=== PATIENT | female | born 1940 | race Caucasian/White ===

== ENCOUNTER → 2017-03-07 | Outpatient (CLI) | payer MEDICARE, OTHER ==
--- NOTE | 2017-03-09 13:48 | MAM ---
EXAM DESCRIPTION: 3D Screening BILATERAL : Digital Mammography. CLINICAL HISTORY: 76 years Female SCREENING . No complaints. Remote family history of breast cancer. Hysterectomy. Has taken HRT 5 or more years ago. COMPARISON: Baseline study at this facility. No prior reports available. TECHNIQUE: Bilateral CC and MLO projection full-field images, 3-D tomosynthesis digital mammographic technique. Also bilateral synthesized CC/ MLO full-field images. CAD not utilized. FINDINGS: The breast parenchymal density pattern is: Scattered areas of fibroglandular density. No skin thickening or nipple retraction bilateral solitary microcalcifications. Bilateral vascular calcifications. Posterior intramammary lymph node right breast. Left axillary lymph nodes. No focal, stellate mass or density, focal asymmetry , and no suspicious microcalcifications bilaterally. IMPRESSION: BI-RADS CATEGORY: 2 - BENIGN FINDINGS. FOLLOW UP: Routine digital bilateral screening, one year interval from March 2017. Written communication explaining the IMPRESSION and follow-up, will be mailed to the patient and referring health care provider. According to the [employer], yearly mammograms are recommended starting at age 40 and continuing as long as a woman is in good health. Any breast change noted on a breast self-exam should be reported promptly to the patient's healthcare provider. Breast MRI is recommended for women with an approximately 20-25% or greater lifetime risk of breast cancer, including women with a strong family history of breast or ovarian cancer and women who have been treated for Hodgkin's disease. A negative mammographic report should not delay tissue diagnosis in patients with significant clinical history or physical findings. Extremely dense breast tissue limits the sensitivity of digital mammography. Electronically signed by: Marbin Gonzales MD 03/09/2017 1:47 PM [facility]
== END ==
LOC: MAMMO 14:15
PROVIDERS: ATTEND Obstetrics & Gynecology
DX: Z12.31 Encounter for screening mammogram for malignant neoplasm of breast (principal)
CPT/HCPCS: 77063; G0202

== ENCOUNTER → 2017-04-25 | Outpatient (CLI) | payer MEDICARE, OTHER ==
--- NOTE | 2017-04-25 15:28 | MRI ---
MRI left wrist without contrast INDICATION: Left wrist pain fall 6 weeks ago TECHNIQUE: Noncontrast MR imaging left wrist FINDINGS: There is moderate basal joint osteoarthrosis of the thumb. There is no evidence of fracture. Prominent distal radioulnar joint fluid. No disruption of the intrinsic ligaments. Neutral ulnar length. Prominent fluid and cystic changes along the deep margin of the flexor compartment with multifocal ganglion formation. No flexor tendon rupture noted. Median nerve signal is normal. There is mild edema and cystic change along the dorsal capsule of the wrist indicating capsular sprain/impingement and multifocal small ganglia. There is a possible disruption of the flexor digitorum tendon to the small finger correlate with flexion limitation in the small finger. 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
== END | disposition home or self-care (01) ==
LOC: MRI 09:00
PROVIDERS: ATTEND Physician Assistant Medical
DX: M19.042 Primary osteoarthritis, left hand (principal)

== ENCOUNTER 2017-08-08 05:39 | Day surgery (SDC) | payer MEDICARE, OTHER ==
[2017-08-08] MEDS ORDERED: PROPARACAINE 0.5% OPHTH SOL 15 ML BTTL ONE (06:12)
[2017-08-08] MEDS ORDERED: TROP 1%/CYCLOPEN 1%/PHENYL 2% DROPS ONE (06:12)
[2017-08-08] MEDS ORDERED: TOBRAMYCIN SULF 0.3 % OPHT SOL 1 DROP LEFT_EYE ONE ×2 (11:54→12:23)
[2017-08-08] MEDS ORDERED: MIDAZOLAM INJ 2 MG/2 ML VIAL ONE ×2 (12:01→12:08)
[2017-08-08] MEDS ORDERED: PROPARACAINE 0.5% OPHTH SOL 15 ML BTTL LEFT_EYE ONE (12:08)
[2017-08-08] MEDS ORDERED: LIDOCAINE 1% PF 2 ML AMP INJ ONE (12:22)
[2017-08-08] MEDS ORDERED: DEXAMETHASONE 0.1% OPHTH SOL 1 DROP LEFT_EYE ONE (12:22)
[2017-08-08] MEDS ORDERED: BRIMONIDINE 0.2% OPHTH DROPS LEFT_EYE ONE (12:23)
[2017-08-08 15:55] VITALS: BP 106/83; TEMP 97.3; O2SAT 98
== END 2017-08-08 13:08 | disposition home or self-care (01) ==
LOC: AMB 05:39
PROVIDERS: ATTEND Ophthalmology
DX: H25.12 Age-related nuclear cataract, left eye (principal); I10 Essential (primary) hypertension; I25.2 Old myocardial infarction; K21.9 Gastro-esophageal reflux disease without esophagitis; E66.9 Obesity, unspecified; Z79.82 Long term (current) use of aspirin; Z79.899 Other long term (current) drug therapy
CPT/HCPCS: 00142; 66984; J2250

== ENCOUNTER 2017-08-18 06:03 | Day surgery (SDC) | payer MEDICARE, OTHER ==
[2017-08-18] MEDS ORDERED: PROPARACAINE 0.5% OPHTH SOL 15 ML BTTL ONE (10:29)
[2017-08-18] MEDS ORDERED: TROP 1%/CYCLOPEN 1%/PHENYL 2% DROPS ONE (10:29)
[2017-08-18] MEDS ORDERED: MIDAZOLAM INJ 2 MG/2 ML VIAL ONE ×2 (12:22→16:14)
[2017-08-18] MEDS ORDERED: LIDOCAINE 1% PF 2 ML AMP INJ ONE (16:16)
[2017-08-18] MEDS ORDERED: DEXAMETHASONE 0.1% OPHTH SOL 1 DROP RIGHT_EYE ONE ×2 (16:24→16:34)
[2017-08-18] MEDS ORDERED: TOBRAMYCIN SULF 0.3 % OPHT SOL 1 DROP RIGHT_EYE ONE ×2 (16:24→16:34)
[2017-08-18] MEDS ORDERED: BRIMONIDINE 0.2% OPHTH DROPS RIGHT_EYE ONE ×2 (16:25→16:34)
[2017-08-18 16:59] VITALS: BP 160/103; TEMP 97.6; O2SAT 96
== END 2017-08-18 16:55 | disposition home health service, planned readmission (86) ==
LOC: AMB 06:03
PROVIDERS: ATTEND Ophthalmology
DX: H25.11 Age-related nuclear cataract, right eye (principal); I10 Essential (primary) hypertension; E11.36 Type 2 diabetes mellitus with diabetic cataract; K21.9 Gastro-esophageal reflux disease without esophagitis; E66.9 Obesity, unspecified; Z79.82 Long term (current) use of aspirin; Z79.899 Other long term (current) drug therapy
CPT/HCPCS: 00142; 66984; J2250

== ENCOUNTER → 2018-04-11 | Outpatient (CLI) | payer MEDICARE, OTHER | LOC: GMAE 10:23 | PROVIDERS: ATTEND Family Medicine | DX: E03.9 Hypothyroidism, unspecified (principal) ==

== ENCOUNTER → 2018-05-16 | Outpatient (CLI) | payer MEDICARE, OTHER ==
--- NOTE | 2018-05-17 16:53 | MAM ---
EXAM DESCRIPTION: 3D Screening BILATERAL : Digital Mammography. CLINICAL HISTORY: 77 years Female SCREENING . No complaints. No personal history of breast cancer. Mother with breast cancer. Hysterectomy 40 years ago. Childbirth. Hormone replacement 5 or more years ago.. Lifetime risk of developing breast cancer (Tyrer-Cuzick model)(%): 3.3. COMPARISON: Bilateral screening digital breast tomosynthesis 03/07/2017. TECHNIQUE: Bilateral CC and MLO projection full-field images, digital tomosynthesis mammographic technique. Bilateral digital 2-D full-field MLO images. CAD not available for tomosynthesis or 2-D images. FINDINGS: The breast parenchymal density pattern is: Scattered areas of fibroglandular density. No skin thickening or nipple retraction. Bilateral solitary microcalcifications. Left axillary lymph nodes. Bilateral vascular calcifications. No new focal, stellate mass or density, focal asymmetry , and no suspicious microcalcifications bilaterally. Stable mammograms compared to prior study. IMPRESSION: Benign exam. BIRAD CATEGORY: 2 BENIGN FINDINGS. RECOMMENDATIONS: FOLLOW UP: Routine digital bilateral mammographic screening, one year interval from May 2018. Written communication explaining the IMPRESSION and follow-up, will be mailed to the patient and referring health care provider. According to the [employer], yearly mammograms are recommended starting at age 40 and continuing as long as a woman is in good health. Any breast change noted on a breast self-exam should be reported promptly to the patient's healthcare provider. Breast MRI is recommended for women with an approximately 20-25% or greater lifetime risk of breast cancer, including women with a strong family history of breast or ovarian cancer and women who have been treated for Hodgkin's disease. A negative mammographic report should not delay tissue diagnosis in patients with significant clinical history or physical findings. Extremely dense breast tissue limits the sensitivity of digital mammography. Electronically signed by: Marbin Gonzales MD 05/17/2018 4:50 PM [facility]
== END ==
LOC: MAMMO 10:00
PROVIDERS: ATTEND Obstetrics & Gynecology
DX: Z12.31 Encounter for screening mammogram for malignant neoplasm of breast (principal)

== ENCOUNTER → 2018-09-21 | Outpatient (CLI) | payer MEDICARE, OTHER ==
--- NOTE | 2018-09-23 12:53 | CT ---
EXAM DESCRIPTION: CTA Head without and with contrast CLINICAL HISTORY: 78 years, Female, HEADACHE COMPARISON: None TECHNIQUE: Precontrast imaging of the brain was performed. Rapid bolus administration of routine adult dose of nonionic iodinated IV contrast was performed with thin-section axial scanning of the brain performed in a dynamic fashion. Reconstructed multiplanar and three dimensional MIP images created on a separate dedicated workstation are reviewed along with the source axial images and stored in the patient's medical record. FINDINGS: Precontrast imaging of the brain shows normal marrufo-white matter differentiation. Normal ventricles and sulci for age. No intracranial hemorrhage, mass, or shift of the midline. No sulcal effacement. Normal size of the ventricles. Bone window images show intact skull base and calvarium. Normal aeration of tympanic cavities and mastoid air cells and paranasal sinuses. Coronal and sagittal reformatted precontrast images confirm the findings. CT angiography intracranial After bolus IV contrast administration, axial source data images show positive enhancement of vertebral and basilar arteries. There is an enhancing mass in the right posterior fossa compressing the lateral aspect of the right lateral ventricle. This most likely represents a meningioma and measures 1.7 x 1.1 x 1.9 cm. Bone window images show no definite adjacent osseous changes. The lesion is extra-axial with prominent CSF space anterior and posterior to the lesion. Epidural metastasis can mimic the appearance of the meningioma. Clinical correlation recommended. Normal enhancement of the basilar artery, superior cerebellar arteries and posterior cerebral arteries bilaterally. Prominent anterior inferior cerebellar arteries. There is normal enhancement of intracranial internal carotid arteries with positive enhancement of the anterior cerebral and middle cerebral arteries. Mild arteriosclerotic irregularity of the anterior cerebral arteries is seen. Positive enhancement of peripheral branch vessels within the anterior cerebral, middle cerebral and posterior cerebral circulation distributions. Coronal images show positive enhancement of the supra clinoid ICAs with widely patent middle cerebral arteries bilaterally. Minimal irregular narrowing of anterior cerebral arteries without flow-limiting stenosis. No aneurysm or major vessel occlusion. IMPRESSION: Enhancing mass in the right lateral posterior fossa indenting the lateral aspect of the right cerebellar hemisphere consistent with meningioma 1.9 cm. See above. Intracranial CT angiography is negative for aneurysm, major vessel occlusion or flow-limiting stenosis. This exam was performed according to our departmental dose-optimization program, which includes automated exposure control, adjustment of the mA and/or kV according to patient size and/or use of iterative reconstruction technique. Electronically signed by: Bird Nuñez MD 09/23/2018 12:51 PM CDT
--- NOTE | 2018-09-23 12:59 | CT ---
EXAM DESCRIPTION: CTA Neck with contrast CLINICAL HISTORY: 78 years, Female, HEADACHE COMPARISON: None TECHNIQUE: Rapid bolus administration of routine adult dose of nonionic iodinated IV contrast IV contrast was performed with thin-section axial scanning of the neck performed in a dynamic fashion. Reconstructed multiplanar and three dimensional MIP images created on a separate dedicated workstation are reviewed along with the source axial images and stored in the patient's medical record. FINDINGS: Three-D shaded surface display images show widely patent carotid bifurcation on the right. The carotid bifurcation is normal on the left but the mid left cervical internal carotid artery appears narrowed approximately 40%. No plaque or stenosis in this area is seen on the source data images and therefore this is thought to be artifactual. Positive enhancement of the aortic arch. Normal enhancement of left subclavian, left common carotid and right innominate arteries with positive enhancement of bilateral common carotid arteries and bilateral vertebral arteries. Right vertebral artery is slightly larger than the left. There is positive enhancement of right subclavian artery. The carotid bifurcations are widely patent bilaterally. The right internal carotid artery is widely patent from the level of the bifurcation to the skull base. The left ICA is tortuous but without stenosis. The cause of the abnormal appearance on the 3-D shaded surface display images may be related to artifacts. Prominent streak artifacts from dental amalgam. Coronal and sagittal reformatted images also show previous cervical spinal fusion C4-C6. IMPRESSION: Normal cervical CT angiography. This exam was performed according to our departmental dose-optimization program, which includes automated exposure control, adjustment of the mA and/or kV according to patient size and/or use of iterative reconstruction technique. Electronically signed by: Bird Nuñez MD 09/23/2018 12:57 PM CDT
== END ==
LOC: RAD 14:34
PROVIDERS: ATTEND Family Medicine
DX: G93.89 Other specified disorders of brain (principal)

== ENCOUNTER → 2018-10-14 | Outpatient (CLI) | payer MEDICARE, OTHER | LOC: GMAE 10:52 | PROVIDERS: ATTEND Family Medicine | DX: R19.7 Diarrhea, unspecified (principal) ==

== ENCOUNTER 2019-11-01 04:22 | Emergency (ER) | payer MEDICARE, OTHER ==
[2019-11-01] MEDS: SODIUM CHLORIDE 0.9% (FLUSH) 10 ML SYG IV PRN (04:52)
--- NOTE | 2019-11-01 04:55 | ED.PDOC ---
History of Present Illness - General Stated Complaint: my heart is racing Time Seen by Provider: 11/01/19 04:43 - History of Present Illness Initial Comments: 79 F +pmh presents with family to ED c/o acute onset of palpitations. Pt informs palpitations started in her sleep and woke her up. H/o similar sx's that occur at night and quickly resolve on their own; however tonight they have not improved. Pt is scheduled with [facility] in the next few weeks for Echo. + h/o similar sx's. Denies alleviating/aggravating factors. Denies associated CP, SOB, cough, dizziness/lightheadedness, headache, n/v/d, f/c. Pt is otherwise healthy with no other signs, symptoms, or complaints. Allergies/Adverse Reactions: Allergies Doxycycline Allergy (Verified 08/08/17 12:32) Home Medications: Ambulatory Orders Aspirin [Baby Aspirin] 81 mg PO QD 10/30/13 Cholecalciferol [Vitamin D] 400 unit PO DAILY 10/30/13 Cyanocobalamin Inj [Vitamin B-12 Inj] 1,000 mcg IM ONCE 10/30/13 Ferrous Gluconate [Fergon] 65 mg PO DAILY 10/30/13 Levothyroxine Sodium [Synthroid] 0.1 mg PO DAILY@69910/30/13 Losartan Potassium 100 mg PO BID 10/30/13 Multiple Minerals W/ Vitamins [Citracal Plus] 1 tab PO DAILY 10/30/13 Torsemide 20 mg PO DAILY@69910/30/13 Amlodipine Besylate 5 mg PO BEDTIME 08/08/17 Magnesium [Magnesium 400 mg] 1 tab PO BEDTIME 08/08/17 Omeprazole Magnesium [Prilosec] 10 mg PO DAILY@69908/08/17 Simvastatin [Zocor] 10 mg PO BEDTIME 08/08/17 Colestipol HCl 1 gm PO BID 11/01/19 Gabapentin [Neurontin] 1 capsule PO BID 11/01/19 Review of Systems - Review of Systems Constitutional: Denies: chills, fever EENTM: Denies: blurred vision, throat pain Respiratory: Denies: cough, short of breath Cardiology: States: edema - bilateral and symmetric, unchanged from baseline, palpitations. Denies: chest pain Gastrointestinal/Abdominal: Denies: abdominal pain, diarrhea, nausea, vomiting Genitourinary: Denies: dysuria, frequency Musculoskeletal: Denies: joint pain, muscle pain Skin: Denies: change in color, rash Neurological: States: other - denies dizziness. Denies: headache, numbness Hematologic/Lymphatic: Denies: blood clots Past Medical History (General) - Patient Medical History Hx Congestive Heart Failure: No Hx Hypertension: Yes Hx Thyroid Disease: Yes Hx Diabetes: No Hx Gastroesophageal Reflux: Yes Hx MRSA: No - Vaccination History Hx Tetanus, Diphtheria Vaccination: Yes Hx Pneumococcal Vaccination: Yes Immunizations Up to Date: Yes - Social History Hx Tobacco Use: No Hx Alcohol Use: No Hx Substance Use: No Hx Substance Use Treatment: No Hx Depression: No - Female History Patient is a Female of Child Bearing Age (10 -59 yrs old): No Patient : No Family Medical History - Family History Mother Family History: No Known Living Status: Physical Exam - Physical Exam General Appearance: Alert, No apparent distress, Other - Non-toxic Eyes, Ears, Nose, Throat Exam: PERRL/EOMI, normal ENT inspection Neck: full range of motion, supple Respiratory: chest non-tender, lungs clear, normal breath sounds, no respiratory distress, no accessory muscle use Cardiovascular/Chest: normal peripheral pulses, no edema, no gallop, no JVD, no murmur, tachycardia, irregularly irregular Gastrointestinal/Abdominal: normal bowel sounds, non tender, soft Extremity: normal inspection, no pedal edema Neurologic: alert, normal mood/affect, oriented x 3 Skin Exam: normal color, warm/dry, other - no rash. no jaundice Progress - Progress Progress: Presents for palpitations with new onset afib with rvr. I will perform labs, EKG, imaging, provide appropriate pharmacotherapy, and continue to monitor/reassess. Dispo will depend on EKG, lab results, imaging results, and overall course in ED; however, admission is expected. 05:21 Rechecked pt with family at bedside. Pt improved briefly with second round of Cardizem and IVF; however, with any movement she develops RVR again. She will require Cardizem drip and admission. Pt agrees with transfer for admission and prefers [facility]. Denies [facility] in [place]. [id number] Score: 4. I will give lovenox here in ED. 05:38 I have consulted with ED physician at [facility] and discussed pt's case in ED along with current findings. She accepts pt for transfer and agrees with plan. Pt stable throughout ED course with improvement in vitals and HR. NAD throughout. Amadou Neil DO Emergency Medicine Physician [id number] - Results/Orders Results/Orders: EKG @0435: read @0445. Afib with RVR @ 135, nl axis, QTc 504, MI and QRS wnl, no ST elevations/depressions, nonspecific ST/T-wave changes. No STEMI. Compared with 04/10/2015 EKG: new afib; otherwise, no changes concerning for acute ischemia. Repeat EKG @0602: read @0608. Bradycardia-tachycardia syndrome with 1st degree AV block, nl axis, MI 210, QRS and QTc wnl, no TEJAS elevations/depressions, nonspecific ST/T-wave changes. No STEMI. New change compared to prior AFib with RVR. Laboratory Tests 11/01/19 04:40 WBC 7.1 RBC 4.94 Hgb 15.2 Hct 43.7 MCV 88.4 MCH 30.7 MCHC 34.7 RDW 12.5 Plt Count 225 MPV 7.4 Absolute Neuts (auto) 4.30 Absolute Lymphs (auto) 1.60 Absolute Monos (auto) 0.90 H Absolute Eos (auto) 0.30 Absolute Basos (auto) 0.10 Neutrophils % 60.5 Lymphocytes % 22.3 Monocytes % 12.4 H Eosinophils % 4.0 Basophils % 0.8 PT 9.4 INR < 1.00 PTT (SP) 24.9 Sodium 137 Potassium 3.5 L Chloride 101 Carbon Dioxide 26 Anion Gap 13.5 BUN 12 Creatinine 0.57 L BUN/Creatinine Ratio 21.1 H Random Glucose 103 Serum Osmolality 273.8 L Calcium 9.7 Magnesium 2.3 Creatine Kinase 103 CK-MB (CK-2) 2.5 CK-MB (CK-2) % Not Reportable Troponin I < 0.02 EXAM: XR Chest, 1 View CLINICAL HISTORY: The patient is 79 years old and is Female; chest pain TECHNIQUE: Single view of the chest. COMPARISON: April 10, 2015. FINDINGS: Lungs: Unremarkable. No consolidation. Pleural space: Unremarkable. No pneumothorax. Heart: Unremarkable. No cardiomegaly. Mediastinum: Unremarkable. Bones/joints: Cervical spine hardware. No osteophytes. No acute rib fracture. Upper abdomen: No free air in the visualized upper abdomen. IMPRESSION: No acute cardiopulmonary process identified. Electronically signed by: Kayla Graf MD 11/01/2019 5:07 AM CDT Vital Signs - 24 hr 11/01/19 11/01/19 11/01/19 04:40 04:42 04:55 Temperature 97.6 F Pulse Rate Pulse Rate [ 127 H 127 H 138 H monitor] Respiratory 20 20 Rate Blood Pressure 155/88 129/110 [Left Arm] O2 Sat by Pulse 96 Oximetry 11/01/19 11/01/19 11/01/19 05:05 05:09 05:25 Temperature Pulse Rate 84 102 H 65 Pulse Rate [ 108 H 90 monitor] Respiratory 20 20 Rate Blood Pressure 107/69 142/83 [Left Arm] O2 Sat by Pulse 95 97 Oximetry 11/01/19 11/01/19 05:49 06:12 Temperature 97.6 F 97.8 F Pulse Rate 65 66 Pulse Rate [ 120 H 67 monitor] Respiratory 20 20 Rate Blood Pressure 149/99 164/87 [Left Arm] O2 Sat by Pulse 95 98 Oximetry Departure - Departure Clinical Impression: Atrial fibrillation with RVR, Sick sinus syndrome Time of Disposition: 05:24 Disposition: Transfer to Hospital Condition: Fair Referrals: STONE SELBY MD [Primary Care Provider] - 1-2 Weeks Home Medications: Ambulatory Orders Aspirin [Baby Aspirin] 81 mg PO QD 10/30/13 Cholecalciferol [Vitamin D] 400 unit PO DAILY 10/30/13 Cyanocobalamin Inj [Vitamin B-12 Inj] 1,000 mcg IM ONCE 10/30/13 Ferrous Gluconate [Fergon] 65 mg PO DAILY 10/30/13 Levothyroxine Sodium [Synthroid] 0.1 mg PO DAILY@69910/30/13 Losartan Potassium 100 mg PO BID 10/30/13 Multiple Minerals W/ Vitamins [Citracal Plus] 1 tab PO DAILY 10/30/13 Torsemide 20 mg PO DAILY@69910/30/13 Amlodipine Besylate 5 mg PO BEDTIME 08/08/17 Magnesium [Magnesium 400 mg] 1 tab PO BEDTIME 08/08/17 Omeprazole Magnesium [Prilosec] 10 mg PO DAILY@0700 08/08/17 Simvastatin [Zocor] 10 mg PO BEDTIME 08/08/17 Colestipol HCl 1 gm PO BID 11/01/19 Gabapentin [Neurontin] 1 capsule PO BID 11/01/19 Critical Care Note - Critical Care Note Total Time (mins): 33 Comments: New Onset Afib Multiple bolus doses of Cardizem required followed by Cardizem drip Labs, imaging, EKG, ordered and reviewed. I have stabilized pt and created treatment plan. Transfer to Outside Facility - Transfer Information Decision to Transfer Date: 11/01/19 Decision to Transfer Time: 05:24 Reason for Transfer: required specialist not available Accepting Facility: [facility]
--- NOTE | 2019-11-01 05:09 | RAD ---
EXAM: XR Chest, 1 View CLINICAL HISTORY: The patient is 79 years old and is Female; chest pain TECHNIQUE: Single view of the chest. COMPARISON: April 10, 2015. FINDINGS: Lungs: Unremarkable. No consolidation. Pleural space: Unremarkable. No pneumothorax. Heart: Unremarkable. No cardiomegaly. Mediastinum: Unremarkable. Bones/joints: Cervical spine hardware. No osteophytes. No acute rib fracture. Upper abdomen: No free air in the visualized upper abdomen. IMPRESSION: No acute cardiopulmonary process identified. Electronically signed by: Kayla Graf MD 11/01/2019 5:07 AM CDT
[2019-11-01] MEDS: SODIUM CHLORIDE 0.9% 1000ML 500 ML IVS ONE (05:10)
[2019-11-01] MEDS: diltiaZEM DRIP 125 MG in SODIUM CHLORIDE 0.9% 100ML 100 ML IVPB SCH (05:42)
[2019-11-01] MEDS ORDERED: ENOXAPARIN SODIUM 80 MG/0.8 ML SYG SUBCU ONE (06:05)
[2019-11-01 06:13] VITALS: TEMP 97.8; O2SAT 98
[2019-11-01 06:28] VITALS: BP 141/70
== END 2019-11-01 06:32 | disposition short-term general hospital (02) ==
LOC: ER 04:22
DX: I48.91 Unspecified atrial fibrillation (principal); I49.5 Sick sinus syndrome; I10 Essential (primary) hypertension; Z79.82 Long term (current) use of aspirin; Z79.899 Other long term (current) drug therapy
CPT/HCPCS: 36415; 71045; 80048; 82550; 82553; 84484; 85025; 85610; 85730; 93005; J1650; J7030; J7050

== ENCOUNTER 2020-02-20 14:07 | Emergency (ER) | payer MEDICARE, OTHER ==
[2020-02-20] MEDS ORDERED: DEXAMETHASONE INJ 4 MG/ML VIAL IV ONE (14:42)
[2020-02-20] MEDS ORDERED: ONDANSETRON INJ 4 MG/2 ML VIAL IV ONE (14:42)
--- NOTE | 2020-02-20 14:53 | ED.PDOC ---
History of Present Illness - General Chief Complaint: General Stated Complaint: bodyaches and headache Time Seen by Provider: 02/20/20 14:14 Source: patient, RN notes reviewed, Vital Signs reviewed, old records Exam Limitations: no limitations - History of Present Illness Initial Comments: 79 yo pleasant F was diagnosed with COVID 5 days ago presents with worsening body aches and headache. States she had a fever 100.6. Today had nausea and emesis. no abdominal pain, dysuria, diarrhea. no chest pain or shortness of breath. Has not taken anything at home for headache. Hx of meningioma, gets MRI q6 months. On blood thinners for a-fib, no recent head trauma. Allergies/Adverse Reactions: Allergies Doxycycline Allergy (Verified 02/20/20 14:46) Home Medications: Ambulatory Orders Aspirin [Baby Aspirin] 81 mg PO QD 10/30/13 Cholecalciferol [Vitamin D] 400 unit PO DAILY 10/30/13 Cyanocobalamin Inj [Vitamin B-12 Inj] 1,000 mcg IM ONCE 10/30/13 Ferrous Gluconate [Fergon] 65 mg PO DAILY 10/30/13 Levothyroxine Sodium [Synthroid] 0.1 mg PO DAILY@69910/30/13 Losartan Potassium 100 mg PO BID 10/30/13 Multiple Minerals W/ Vitamins [Citracal Plus] 1 tab PO DAILY 10/30/13 Torsemide 20 mg PO DAILY@69910/30/13 Amlodipine Besylate 5 mg PO BEDTIME 08/08/17 Magnesium [Magnesium 400 mg] 1 tab PO BEDTIME 08/08/17 Omeprazole Magnesium [Prilosec] 10 mg PO DAILY@69908/08/17 Simvastatin [Zocor] 10 mg PO BEDTIME 08/08/17 Colestipol HCl 1 gm PO BID 11/01/19 Gabapentin [Neurontin] 1 capsule PO BID 11/01/19 Dexamethasone [Decadron] 4 mg PO DAILY #4 tab 02/20/20 Ondansetron HCl [Zofran] 4 mg PO TID PRN #15 tab 02/20/20 Review of Systems - Review of Systems Constitutional: States: chills, fever, malaise EENTM: Denies: blurred vision, nose congestion, throat pain Respiratory: Denies: cough, short of breath, stridor Cardiology: Denies: chest pain, palpitations, syncope Gastrointestinal/Abdominal: States: abdominal pain, nausea. Denies: diarrhea, vomiting Genitourinary: Denies: frequency, hematuria Musculoskeletal: States: muscle pain. Denies: back pain Skin: Denies: rash Neurological: States: headache. Denies: numbness, paresthesia, weakness Endocrine: Denies: unexplained weight gain, unexplained weight loss Hematologic/Lymphatic: Denies: easy bleeding, easy bruising Past Medical History (General) - Patient Medical History Hx Seizures: No Hx Dementia: No Hx Asthma: No Hx of COPD: No Hx Congestive Heart Failure: No Hx Hypertension: Yes Hx Thyroid Disease: Yes Hx Diabetes: No Hx Gastroesophageal Reflux: Yes Hx Cancer: No Hx Hepatitis C: No Hx MRSA: No Hx Other - free text: meningioma Surgical History: cholecystectomy, Hysterectomy - Vaccination History Hx Tetanus, Diphtheria Vaccination: Yes Hx Influenza Vaccination: Yes Hx Pneumococcal Vaccination: Yes - Social History Hx Tobacco Use: No Hx Alcohol Use: No Hx Substance Use: No Hx Substance Use Treatment: No Hx Depression: No - Female History Patient is a Female of Child Bearing Age (10 -59 yrs old): No Patient : No Family Medical History - Family History Mother Family History: No Known Living Status: Physical Exam - Physical Exam General Appearance: Alert, Comfortable, No apparent distress, Well Developed, Well Groomed, Well Hydrated, Well Nourished Eye Exam: bilateral normal Ears, Nose, Throat: hearing grossly normal, normal ENT inspection Neck: non-tender, full range of motion, supple, normal inspection Respiratory: chest non-tender, lungs clear, normal breath sounds, no respiratory distress, no accessory muscle use Cardiovascular/Chest: normal peripheral pulses, regular rate, rhythm, no edema, no gallop, no JVD, no murmur Peripheral Pulses: radial,right: 2+, radial,left: 2+ Gastrointestinal/Abdominal: normal bowel sounds, non tender, soft, no organomegaly, no pulsatile mass Rectal Exam: deferred Back Exam: normal inspection, no CVA tenderness, no vertebral tenderness Extremity: normal range of motion, non-tender, normal inspection, no pedal edema, no calf tenderness, normal capillary refill Neurologic: hospitalist medical director II-XII nml as tested, no motor/sensory deficits, alert, normal mood/affect, oriented x 3 Skin Exam: normal color, warm/dry Progress - Progress Progress: 02/20/20 21:05 Pain improved with medication and IVF. VSS, saturating well on RA. no meningeal signs. The data reviewed when caring for this patient included: nurse notes, prior records, etc. The history and assessments from nurses notes were reviewed and considered, and the patient's home medication list was also reviewed and co nsidered. My assessment and the results of testing completed here in the ED were discussed with the patient/family. All questions were answered, and they express understanding of my assessment and the plan. They have been instructed to return if their symptoms worsen, and have been asked to follow up with their primary care physician to recheck today's presenting complaint. Strict return precautions given. I have reviewed medication, benefits, alternatives and side effects. Patient decided to proceed with medication. Donna Bacon DO #[id number] - EKG/XRAY/CT XRAY: chest - no acute cardiopulmonary pathology CT: head: stable meningioma, no ICH. Departure - Departure Clinical Impression: COVID-19 Headache Qualifiers: Headache type: unspecified Headache chronicity pattern: acute headache Intractability: not intractable Qualified Code(s): R51.9 - Headache, unspecified Time of Disposition: 15:49 Disposition: Discharge to Home or Self Care Condition: Fair Departure Forms: ED Discharge - Pt. Copy, Patient Portal Self Enrollment Instructions: Headache, Adult, Muscle and Bone Pain (DC), Viral Syndrome (DC) Diet: resume usual diet Activity: increase activity as tolerated Referrals: STONE SELBY MD [Primary Care Provider] - 1 Week Prescriptions: Dexamethasone [Decadron] 4 mg PO DAILY #4 tab Ondansetron HCl [Zofran] 4 mg PO TID PRN #15 tab PRN Reason: Vomiting Home Medications: Ambulatory Orders Aspirin [Baby Aspirin] 81 mg PO QD 10/30/13 Cholecalciferol [Vitamin D] 400 unit PO DAILY 10/30/13 Cyanocobalamin Inj [Vitamin B-12 Inj] 1,000 mcg IM ONCE 10/30/13 Ferrous Gluconate [Fergon] 65 mg PO DAILY 10/30/13 Levothyroxine Sodium [Synthroid] 0.1 mg PO DAILY@0700 10/30/13 Losartan Potassium 100 mg PO BID 10/30/13 Multiple Minerals W/ Vitamins [Citracal Plus] 1 tab PO DAILY 10/30/13 Torsemide 20 mg PO DAILY@69910/30/13 Amlodipine Besylate 5 mg PO BEDTIME 08/08/17 Magnesium [Magnesium 400 mg] 1 tab PO BEDTIME 08/08/17 Omeprazole Magnesium [Prilosec] 10 mg PO DAILY@69908/08/17 Simvastatin [Zocor] 10 mg PO BEDTIME 08/08/17 Colestipol HCl 1 gm PO BID 11/01/19 Gabapentin [Neurontin] 1 capsule PO BID 11/01/19 Dexamethasone [Decadron] 4 mg PO DAILY #4 tab 02/20/20 Ondansetron HCl [Zofran] 4 mg PO TID PRN #15 tab 02/20/20
[2020-02-20] MEDS ORDERED: SODIUM CHLORIDE 0.9% 1000ML 1,000 ML IVS ONE (15:40)
--- NOTE | 2020-02-20 15:47 | CT ---
EXAM DESCRIPTION: Head CLINICAL HISTORY: headache, hx menigioma COMPARISON: September 21, 2018 TECHNIQUE: Non contrast cranial CT FINDINGS: Ventricles and sulci are unremarkable. Stable posterior fossa meningioma along the posterolateral margin of the petrous temporal bone maximum measurement 2 cm. No acute or subacute ischemia. There are no white matter abnormalities detected. The calvarium is unremarkable. The visualized paranasal sinuses and the mastoids are clear. IMPRESSION: 1. Stable right side posterior fossa meningioma This exam was performed according to our departmental dose-optimization program, which includes automated exposure control, adjustment of the mA and/or kV according to patient size and/or use of iterative reconstruction technique. Electronically signed by: Hiro Manzo MD 02/20/2020 3:45 PM [employer]
--- NOTE | 2020-02-20 15:48 | RAD ---
EXAM DESCRIPTION: Chest,1 View CLINICAL HISTORY: 79 years Female, covid COMPARISON: November 01, 2019 TECHNIQUE: X-ray 1 view chest AP portable FINDINGS: Lungs are clear. No consolidation. Heart normal size. IMPRESSION: Normal. Electronically signed by: Hiro Manzo MD 02/20/2020 3:46 PM [facility]
[2020-02-20 16:39] VITALS: BP 157/79; TEMP 98.4; O2SAT 98
== END 2020-02-20 16:36 | disposition home or self-care (01) ==
LOC: ER 14:07
DX: U07.1 COVID-19 (principal); R51.9 Headache, unspecified; R10.9 Unspecified abdominal pain; I48.91 Unspecified atrial fibrillation; K21.9 Gastro-esophageal reflux disease without esophagitis; I10 Essential (primary) hypertension; E07.9 Disorder of thyroid, unspecified; Z79.899 Other long term (current) drug therapy; Z79.82 Long term (current) use of aspirin; Z88.1 Allergy status to other antibiotic agents
CPT/HCPCS: 36415; 70450; 71045; 80053; 82550; 83615; 83735; 84484; 85025; 85379; 85730; 86140; J1100; J2405; J7030

== ENCOUNTER 2020-02-27 10:08 | Inpatient (IN) | payer MEDICARE, OTHER ==
--- NOTE | 2020-02-27 10:30 | ED.PDOC ---
History of Present Illness - General Chief Complaint: Respiratory Problem Time Seen by Provider: 02/27/20 10:10 - History of Present Illness Initial Comments: 79 yo F PMH COVID+ 13 days ago PMH HTN HL Thyroid Disease presents to the ED c/o chills fatigue cough and not feeling well x 13 days. Denies fever admits cough denies sob recent travel admits being positive for covid19. Denies fever admits chills nausea denies vomiting admits diarrhea no blood denies chest pain admits sob denies diaphoresis no change in diet rest or bladder has PMD [place] for follow up no other c/o today. PPE worn-N95 surgical mask with attached face shield over N95 gloves and face shield over that Allergies/Adverse Reactions: Allergies Doxycycline Allergy (Verified 02/27/20 11:01) Home Medications: Ambulatory Orders Aspirin [Baby Aspirin] 81 mg PO QD 10/30/13 Cholecalciferol [Vitamin D] 400 unit PO DAILY 10/30/13 Cyanocobalamin Inj [Vitamin B-12 Inj] 1,000 mcg IM ONCE 10/30/13 Ferrous Gluconate [Fergon] 65 mg PO DAILY 10/30/13 Levothyroxine Sodium [Synthroid] 0.1 mg PO DAILY@69910/30/13 Losartan Potassium 100 mg PO BID 10/30/13 Multiple Minerals W/ Vitamins [Citracal Plus] 1 tab PO DAILY 10/30/13 Torsemide 20 mg PO DAILY@0710/30/13 Amlodipine Besylate 5 mg PO BEDTIME 08/08/17 Magnesium [Magnesium 400 mg] 1 tab PO BEDTIME 08/08/17 Omeprazole Magnesium [Prilosec] 10 mg PO DAILY@0708/08/17 Simvastatin [Zocor] 10 mg PO BEDTIME 08/08/17 Colestipol HCl 1 gm PO BID 11/01/19 Gabapentin [Neurontin] 1 capsule PO BID 11/01/19 Dexamethasone [Decadron] 4 mg PO DAILY #4 tab 02/20/20 Ondansetron HCl [Zofran] 4 mg PO TID PRN #15 tab 02/20/20 Review of Systems - Review of Systems Constitutional: States: see HPI EENTM: States: see HPI Respiratory: States: see HPI Cardiology: States: see HPI Gastrointestinal/Abdominal: States: see HPI Genitourinary: States: see HPI Musculoskeletal: States: see HPI Skin: States: see HPI Neurological: States: see HPI Endocrine: States: see HPI Hematologic/Lymphatic: States: see HPI All other Systems: Reviewed and Negative Past Medical History (General) - Patient Medical History Hx Seizures: No Hx Dementia: No Hx Asthma: No Hx of COPD: No Hx Congestive Heart Failure: No Hx Hypertension: Yes Hx Thyroid Disease: Yes Hx Diabetes: No Hx Gastroesophageal Reflux: Yes Hx Cancer: No Hx Hepatitis C: No Hx MRSA: No - Vaccination History Hx Tetanus, Diphtheria Vaccination: Yes Hx Influenza Vaccination: Yes Hx Pneumococcal Vaccination: Yes - Social History Hx Tobacco Use: No Hx Alcohol Use: No Hx Substance Use: No Hx Substance Use Treatment: No Hx Depression: No - Female History Patient : No Family Medical History - Family History Mother Family History: No Known Living Status: Physical Exam - Physical Exam General Appearance: No apparent distress Eye Exam: bilateral normal Ears, Nose, Throat: normal ENT inspection Neck: non-tender, full range of motion Respiratory: no respiratory distress Cardiovascular/Chest: regular rate, rhythm Gastrointestinal/Abdominal: non tender, soft Rectal Exam: deferred Back Exam: normal inspection Extremity: normal range of motion, non-tender Neurologic: normal mood/affect Skin Exam: normal color Progress - Progress Progress: 02/27/20 10:32 A/P-Hypoxia, COVID19, SOB, Fatigue-line labs imaging reassess 02/27/20 11:07 EKG-non specific TW changes No STEMI Sinus Bradycardia 56bpm 02/27/20 11:45 Laboratory Tests 02/27/20 02/27/20 02/27/20 10:10 10:10 10:10 WBC 6.6 RBC 4.34 Hgb 13.4 Hct 37.7 MCV 87.0 MCH 30.8 MCHC 35.5 RDW 12.5 Plt Count 326 MPV 6.1 L Absolute Neuts (auto) 5.40 Absolute Lymphs (auto) 0.50 L Absolute Monos (auto) 0.60 Absolute Eos (auto) 0.00 Absolute Basos (auto) 0.00 Neutrophils % 81.9 H Lymphocytes % 7.9 L Monocytes % 9.5 H Eosinophils % 0.5 L Basophils % 0.2 PT 11.5 H INR 1.16 H PTT (SP) 34.5 H Fibrinogen 614 H D-Dimer, Quantitative Sodium Cancelled Potassium Cancelled Chloride Cancelled Carbon Dioxide Cancelled Anion Gap Cancelled BUN Cancelled Creatinine Cancelled BUN/Creatinine Ratio Cancelled Random Glucose Cancelled Serum Osmolality Cancelled Calcium Cancelled Magnesium Total Bilirubin Cancelled AST Cancelled ALT Cancelled Alkaline Phosphatase Cancelled LD Total Troponin I C-Reactive Protein B-Natriuretic Peptide Serum Total Protein Cancelled Albumin Cancelled Globulin Cancelled Albumin/Globulin Ratio Cancelled 02/27/20 02/27/20 02/27/20 10:10 10:10 10:10 WBC RBC Hgb Hct MCV MCH MCHC RDW Plt Count MPV Absolute Neuts (auto) Absolute Lymphs (auto) Absolute Monos (auto) Absolute Eos (auto) Absolute Basos (auto) Neutrophils % Lymphocytes % Monocytes % Eosinophils % Basophils % PT INR PTT (SP) Fibrinogen D-Dimer, Quantitative 275.0 Sodium 133 L Potassium 4.1 Chloride 95 L Carbon Dioxide 28 Anion Gap 14.1 BUN 11 Creatinine 0.59 L BUN/Creatinine Ratio 18.6 Random Glucose 107 H Serum Osmolality 266.3 L Calcium 8.5 Magnesium 2.2 Total Bilirubin 0.5 AST 33 ALT 67 H Alkaline Phosphatase 102 LD Total 174 Troponin I < 0.02 C-Reactive Protein 8.3 H* B-Natriuretic Peptide 147.0 H Serum Total Protein 6.7 Albumin 3.1 L Globulin 3.6 H Albumin/Globulin Ratio 0.9 L EXAM DESCRIPTION: Chest,1 View CLINICAL HISTORY: Cough COMPARISON: February 20, 2020 TECHNIQUE: One view radiograph of the chest FINDINGS: Lower cervical ACDF construct. Cardiac silhouette shows normal heart size. Pulmonary vascularity is within normal limits. Subtle hazy alveolar opacities in the mid and lower lung zones bilaterally concerning for infectious/inflammatory processes such as pneumonia. Mildly blunted right costophrenic angle compatible with trace right pleural effusion. There is no pneumothorax. No acute osseous abnormality. IMPRESSION: Subtle hazy alveolar opacities in the mid and lower lung zones bilaterally concerning for infectious/inflammatory processes such as pneumonia. 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 TECHNIQUE: Noncontrast transaxial CT images of the chest are obtained. This exam was performed according to our departmental dose- optimization program, which includes automated exposure control, adjustment of the mA and/or kV according to patient size and/or use of iterative reconstruction technique . FINDINGS: Heart is mildly enlarged. Coronary arteries unremarkable. Mild scattered calcified plaque of the thoracic aorta. No pericardial effusion. Trace right greater than left pleural effusions. Visualized upper abdomen shows no acute findings. Lungs are normally aerated. Mild to moderate patchy areas of mostly groundglass and alveolar infiltrates are seen throughout the lungs bilaterally. No consolidation with air bronchograms. No bronchiectasis. The tracheobronchial tree is unremarkable. Osseous structures show no aggressive bony lesions. Moderate spondylitic changes of the spine. IMPRESSION: Mild to moderate bilateral pulmonary infiltrates compatible with covid 19 pneumonia. Trace bilateral pleural effusions are seen. Electronically signed by: Marlo Childress MD 02/27/2020 11:12 AM [employer] PATCHING MACHINE OPERATOR 02/27/20 13:07 Spoke to [place] Veliz Accepts admission Departure - Departure Clinical Impression: Pneumonia due to COVID-19 virus, Hypoxia, SOB (shortness of breath) Fatigue Qualifiers: Fatigue type: unspecified Qualified Code(s): R53.83 - Other fatigue Time of Disposition: 13:09 Disposition: Admit Patient Condition: Fair Departure Forms: ED Discharge - Pt. Copy, Patient Portal Self Enrollment Referrals: STONE SELBY MD [Primary Care Provider] - 1-2 Days Home Medications: Ambulatory Orders Aspirin [Baby Aspirin] 81 mg PO QD 10/30/13 Cholecalciferol [Vitamin D] 400 unit PO DAILY 10/30/13 Cyanocobalamin Inj [Vitamin B-12 Inj] 1,000 mcg IM ONCE 10/30/13 Ferrous Gluconate [Fergon] 65 mg PO DAILY 10/30/13 Levothyroxine Sodium [Synthroid] 0.1 mg PO DAILY@69910/30/13 Losartan Potassium 100 mg PO BID 10/30/13 Multiple Minerals W/ Vitamins [Citracal Plus] 1 tab PO DAILY 10/30/13 Torsemide 20 mg PO DAILY@69910/30/13 Amlodipine Besylate 5 mg PO BEDTIME 08/08/17 Magnesium [Magnesium 400 mg] 1 tab PO BEDTIME 08/08/17 Omeprazole Magnesium [Prilosec] 10 mg PO DAILY@69908/08/17 Simvastatin [Zocor] 10 mg PO BEDTIME 08/08/17 Colestipol HCl 1 gm PO BID 11/01/19 Gabapentin [Neurontin] 1 capsule PO BID 11/01/19 Dexamethasone [Decadron] 4 mg PO DAILY #4 tab 02/20/20 Ondansetron HCl [Zofran] 4 mg PO TID PRN #15 tab 02/20/20 Decision To Admit - Decistion To Admit Decision to Admit Date: 02/27/20 Decision to Admit Time: 13:10
--- NOTE | 2020-02-27 11:13 | RAD ---
EXAM DESCRIPTION: Chest,1 View CLINICAL HISTORY: Cough COMPARISON: February 20, 2020 TECHNIQUE: One view radiograph of the chest FINDINGS: Lower cervical ACDF construct. Cardiac silhouette shows normal heart size. Pulmonary vascularity is within normal limits. Subtle hazy alveolar opacities in the mid and lower lung zones bilaterally concerning for infectious/inflammatory processes such as pneumonia. Mildly blunted right costophrenic angle compatible with trace right pleural effusion. There is no pneumothorax. No acute osseous abnormality. IMPRESSION: Subtle hazy alveolar opacities in the mid and lower lung zones bilaterally concerning for infectious/inflammatory processes such as pneumonia. Electronically signed by: Nate Duffy MD 02/27/2020 11:11 AM [facility]
--- NOTE | 2020-02-27 11:14 | CT ---
EXAM DESCRIPTION: Chest w/o Contrast CLINICAL HISTORY: covid+ SOB Cough COMPARISON: None. TECHNIQUE: Noncontrast transaxial CT images of the chest are obtained. This exam was performed according to our departmental dose-optimization program, which includes automated exposure control, adjustment of the mA and/or kV according to patient size and/or use of iterative reconstruction technique . FINDINGS: Heart is mildly enlarged. Coronary arteries unremarkable. Mild scattered calcified plaque of the thoracic aorta. No pericardial effusion. Trace right greater than left pleural effusions. Visualized upper abdomen shows no acute findings. Lungs are normally aerated. Mild to moderate patchy areas of mostly groundglass and alveolar infiltrates are seen throughout the lungs bilaterally. No consolidation with air bronchograms. No bronchiectasis. The tracheobronchial tree is unremarkable. Osseous structures show no aggressive bony lesions. Moderate spondylitic changes of the spine. IMPRESSION: Mild to moderate bilateral pulmonary infiltrates compatible with covid 19 pneumonia. Trace bilateral pleural effusions are seen. 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
[2020-02-27] MEDS ORDERED: cefTRIAXone SODIUM 1 GM in SODIUM CHL 0.9% 50ML MIN-BAG+ 50 ML IVPB ONE (11:50)
[2020-02-27] MEDS ORDERED: DEXAMETHASONE INJ 10 MG/ML VIAL IV ONE (11:50)
[2020-02-27] MEDS ORDERED: AZITHROMYCIN IV 500 MG in SODIUM CHLORIDE 0.9% 250ML 250 ML IVPB ONE (11:50)
[2020-02-27] MEDS ORDERED: SODIUM CHL 0.9% 50ML MIN-BAG+ 50 ML IVPB ONE (12:05)
--- NOTE | 2020-02-27 13:48 | HP ---
SUPERVISING PHYSICIAN: Meseret Moreira MD CHIEF COMPLAINT: Worsening shortness of breath. HISTORY OF PRESENT ILLNESS: Ms. Neal is a 79-year-old female patient that had a recent COVID infection diagnosed on 02/16/20, 11 days previously. She was treated through the clinic. She presented today with chills, fatigue, cough and not feeling well. CT of her chest showed mild to moderate bilateral pulmonary infiltrates compatible with COVID-19 pneumonia. Labs showed white count 6,600 with a left shift. Coagulation studies showed normal D-dimer with fibrinogen 614. She is on Xarelto for a history of paroxysmal atrial fibrillation followed by Dr. Franklin. Vital signs in the Emergency Room initially showed saturation of 90% on room air at rest. Blood pressure 149/81, respirations 16, heart rate 55, afebrile. Chemistries showed a mildly low sodium at 133, normal creatinine 0.59. C-reactive protein was elevated at 8.3. Troponin was less than 0.02. Given her recent diagnosis of COVID pneumonitis and now CT showing pneumonia, the patient is going to be admitted for mild hypoxia and developing pneumonia. She is admitted in stable condition. PAST MEDICAL HISTORY: 1. Paroxysmal atrial fibrillation on Xarelto. 2. Hyperlipidemia. 3. Hypertension. 4. Diastolic dysfunction congestive heart failure secondary to left ventricular hypertrophy with ejection fraction 55%. Last echocardiogram was in November 2019. 5. Cervical disc disease. 6. Hypothyroidism. PAST SURGICAL HISTORY: 1. Bilateral cataract removal. HOME MEDICATIONS: 1. Amlodipine 5 mg daily. 2. Ferrous sulfate 65 mg daily. 3. Baby aspirin. 4. Neurontin 300 mg b.i.d. 5. Flecainide 50 mg b.i.d. 6. Magnesium 400 mg. 7. Cozaar 100 mg daily. 8. Synthroid 0.1 mg daily. 9. Simvastatin 10 mg daily. 10. Xarelto 20 mg daily. 11. Prilosec [id number]. 12. Torsemide 20 mg daily. ALLERGIES: DOXYCYCLINE, LISINOPRIL. FAMILY HISTORY: Noncontributory. SOCIAL HISTORY: The patient is . she lives in [place], [place]. She is retired. She has no history of alcohol use, tobacco use or illicit drug use. REVIEW OF SYSTEMS: CONSTITUTIONAL: Positive for general malaise, fatigue. HEENT: Denies headaches, sore throats, earaches, nasal congestion, vision changes. RESPIRATORY: As noted in history of present illness, increasing shortness of breath. CARDIOVASCULAR: Denies chest pain, palpitations or syncopal episodes. GASTROINTESTINAL: Denies nausea, vomiting, diarrhea, constipation or abdominal pain. GENITOURINARY: Denies dysuria, hematuria, polyuria. MUSCULOSKELETAL: Denies arthralgias, joint pain, joint swelling. SKIN: Denies lesions, rashes, moles or unexplained changes. NEUROLOGIC: Denies ataxia, seizures, paresthesias, vision changes, migraines. HEMATOLOGIC: Denies unexplained bleeding, bruising or transfusion reactions with the patient being on Xarelto. PHYSICAL EXAMINATION: VITAL SIGNS: Temperature 96, pulse 55, blood pressure 139/79, saturation 90% on room air with respirations 16. GENERAL: The patient is resting comfortably in no acute distress. She is alert. HEENT: Tympanic membranes clear bilaterally. Oropharynx is pink, moist without any lesions. NECK: Supple, nontender with full range of motion. No jugular venous distention noted. RESPIRATORY: Lung sounds diminished towards the bases, no obvious rhonchi, wheezes or rales. CARDIOVASCULAR: Slightly irregular rate and rhythm without any appreciable murmurs, gallops, or rubs. ABDOMEN: Soft, nontender. Positive bowel sounds. RECTAL: Deferred. BACK: Normal. No CVA or vertebral tenderness. EXTREMITIES: There is no cyanosis, clubbing or edema. NEUROLOGIC: The patient is alert and oriented times three. SKIN: Warm, pink and dry. LABORATORY: White count 6,600, hemoglobin 13.4, hematocrit 37.7, platelet count 326,000. Differential with a left shift. Coagulation studies showed PT 11.5, PTT 34.5, INR 1.16, but she is taking Xarelto. Fibrinogen 614. D-dimer normal at 275. Chemistry showed mild hyponatremia at 133 with potassium 4.1, BUN 11, creatinine 0.5, calcium 2.2, ferritin elevated at 381. Calcium 8.5, magnesium 2.2. Liver function within normal limits except for slightly elevated ALT of 67. LDH and troponin both within normal limits. C-reactive protein elevated at 8.3. BNP 147. Urinalysis showed trace of leukocyte esterase, otherwise, within normal limits. MICROBIOLOGY: Blood cultures pending. RADIOLOGY: CT of chest per radiologic interpretation showed mild to moderate bilateral pulmonary infiltrates compatible with COVID pneumonia. ASSESSMENT: 1. Bilateral COVID pneumonia, recently diagnosed within the last 10 days. 2. Hypertension. 3. Hyperlipidemia. 4. Paroxysmal atrial fibrillation on Xarelto. 5. Cervical disc disease. 6. Hypothyroidism. PLAN: The patient is going to be admitted for treatment of COVID pneumonia. Given that she is 10 days out, I am going to treat her with azithromycin and Rocephin. I will put her on some Decadron and Remdesivir since she is hypoxic on room air, her advanced age and underlying comorbidities put her at risk. She will be on Xarelto for anticoagulation as she is already on chronic anticoagulation. She will be on guaifenesin, Protonix and Align. I anticipate her length of stay to be 2 to 3 days. Until then, we will follow her progress closely and treat as needed for pneumonia secondary to COVID infection. Until then, we will continue to monitor and treat as needed. #[id number] [facility]
[2020-02-27] MEDS ORDERED: SODIUM CHLORIDE 0.9% (FLUSH) 10 ML SYG IV PRN (15:38)
[2020-02-27] MEDS ORDERED: ACETAMINOPHEN 325 MG TAB PO PRN (15:38)
[2020-02-27] MEDS ORDERED: ALBUTEROL INHALER 64 PUFF/8GM INH PRN (15:42)
[2020-02-27] MEDS ORDERED: REMDESIVIR 200 MG in SODIUM CHLORIDE 0.9% 250ML 250 ML IVPB ONE (15:43)
[2020-02-27] MEDS: ALBUTEROL INHALER 64 PUFF/8GM INH SCH ×2 (17:05→21:36)
[2020-02-27] MEDS: IV SET AND CAP CHANGE INJ INJ SCH (17:48)
[2020-02-27] MEDS ORDERED: ENOXAPARIN SODIUM 40 MG/0.4 ML SYG SUBCU ONE (19:18)
[2020-02-27] MEDS ORDERED: guaiFENesin ER TAB 600 MG TAB ONE (19:18)
[2020-02-27] MEDS ORDERED: RIVAROXABAN 10 MG TAB ONE (20:37)
[2020-02-27] MEDS: SIMVASTATIN 10 MG TAB PO SCH (20:39)
[2020-02-27] MEDS: GABAPENTIN 300 MG CAP PO SCH (20:39)
[2020-02-27] MEDS: guaiFENesin ER TAB 600 MG TAB PO SCH (20:39)
[2020-02-27] MEDS: FLECAINIDE 50 MG TAB PO SCH (20:39)
[2020-02-27] MEDS ORDERED: NON-FORMULARY MEDICATION 1 EA MIS (Rivaroxaban [Xarelto] 20 MG) PO SCH (21:00)
[2020-02-27] MEDS ORDERED: ENOXAPARIN SODIUM 40 MG/0.4 ML SYG SUBCU SCH (21:00)
[2020-02-27] MEDS ORDERED: amLODIPine BESYLATE 5 MG TAB ONE (21:18)
[2020-02-27] MEDS ORDERED: LOSARTAN POTASSIUM 100 MG TAB ONE (21:18)
[2020-02-27] MEDS: LOSARTAN POTASSIUM 100 MG TAB PO SCH (21:24)
[2020-02-27] MEDS: amLODIPine BESYLATE 5 MG TAB PO SCH (21:25)
[2020-02-28] MEDS ORDERED: PANTOPRAZOLE SODIUM IV 40 MG VIAL ONE (04:31)
[2020-02-28] MEDS ORDERED: PANTOPRAZOLE SODIUM IV 40 MG VIAL IV SCH (06:30)
[2020-02-28] MEDS: ALBUTEROL INHALER 64 PUFF/8GM INH SCH ×4 (08:37→21:41)
[2020-02-28] MEDS ORDERED: ASPIRIN (CHEWABLE) 81 MG TAB ONE (08:47)
[2020-02-28] MEDS ORDERED: TORSEMIDE TAB 20 MG ONE (08:47)
[2020-02-28] MEDS ORDERED: FERROUS SULFATE 325 MG TAB PO SCH (09:00)
[2020-02-28] MEDS ORDERED: LEVOTHYROXINE SODIUM 0.1 MG TAB PO SCH (09:00)
[2020-02-28] MEDS ORDERED: ASPIRIN PO SCH (09:00)
[2020-02-28] MEDS ORDERED: REMDESIVIR 100 MG in SODIUM CHLORIDE 0.9% 250ML 250 ML IVPB SCH (09:00)
[2020-02-28] MEDS: TORSEMIDE 20 MG PO SCH ×2 (09:17→12:08)
[2020-02-28] MEDS: guaiFENesin ER TAB 600 MG TAB PO SCH ×2 (09:18→20:36)
[2020-02-28] MEDS: FLECAINIDE 50 MG TAB PO SCH ×2 (09:18→20:36)
[2020-02-28] MEDS: BIFIDOBACTERIUM INFANTIS 4 MG CAP PO SCH (09:18)
[2020-02-28] MEDS: DEXAMETHASONE INJ 10 MG/ML VIAL IV SCH (09:19)
[2020-02-28] MEDS ORDERED: cefTRIAXone SODIUM 1 GM VIAL ONE (11:54)
[2020-02-28] MEDS ORDERED: SODIUM CHL 0.9% 50ML MIN-BAG+ 50 ML IVPB ONE (11:55)
[2020-02-28] MEDS: cefTRIAXone SODIUM 1 GM in SODIUM CHL 0.9% 50ML MIN-BAG+ 50 ML IVPB SCH (12:05)
[2020-02-28] MEDS: GABAPENTIN 300 MG CAP PO SCH ×2 (12:05→20:36)
[2020-02-28] MEDS: AZITHROMYCIN IV 500 MG in SODIUM CHLORIDE 0.9% 250ML 250 ML IVPB SCH (12:05)
[2020-02-28] MEDS ORDERED: TORSEMIDE TAB 20 MG PO SCH (16:30)
[2020-02-28] MEDS ORDERED: RIVAROXABAN 10 MG TAB ONE (16:55)
[2020-02-28] MEDS ORDERED: LOSARTAN POTASSIUM 100 MG TAB ONE (16:55)
[2020-02-28] MEDS: LOSARTAN POTASSIUM 100 MG TAB PO SCH (17:39)
[2020-02-28] MEDS: RIVAROXABAN 10 MG TAB PO SCH (17:39)
--- NOTE | 2020-02-28 18:16 | PN ---
SUPERVISING PHYSICIAN: Jl Moreira MD DATE: 02/28/20 SUBJECTIVE: The patient says she is feeling a little bit better today. She is still short of breath with any ambulatory effort. Her biggest complaint is a cough that pretty much kept her up last night. Otherwise, she has no further complaints. OBJECTIVE: VITAL SIGNS: Temperature 97.5, pulse 69, blood pressure 140/78, respirations 18,oxygen saturation 93% on room air, 95% on 2 liter nasal cannula at rest. GENERAL: The patient looks to be resting comfortably in no acute distress. CHEST: Lung sounds a little diminished towards the bases, otherwise clear. HEART: Regular rate and rhythm. ABDOMEN: Soft, non-tender, positive bowel sounds. EXTREMITIES: Without edema. NEUROLOGIC: Alert and oriented x 3. LABORATORY: White count 7,800, hemoglobin 12.8, hematocrit 35.8, platelet count 341,000. Differential does show a left shift. Coagulation studies continue to show a normal D-dimer. Fibrinogen a little elevated at 614 which is stable. PTT is 34.5 which is stable. Chemistries show slightly decreased sodium today of 132, potassium 4.2 with creatinine 0.45 Liver functions all within normal limits. Magnesium and calcium normal. C-reactive protein 5.3. MICROBIOLOGY: Blood cultures remain negative at 24 hours. RADIOLOGY: No additional radiographic studies. ASSESSMENT: 1. Bilateral COVID pneumonia, recently diagnosed within the last 10 days. 2. Hypertension. 3. Hyperlipidemia. 4. Paroxysmal atrial fibrillation on Xarelto. 5. Cervical disc disease. 6. Hypothyroidism. PLAN: Will continue with plan of care at this point with azithromycin, Rocephin, Decadron and Remdesivir considering that she did not have any previous outpatient management with prescriptions other than [id number]. She is on Xarelto in regards to chronic anticoagulation. I think her sodium was a little low chronically given that she is on Demodex. Will continue to watch her labs closely and hopefully will be able to transition her to outpatient management within the next 24-48 hours. Until the, we will continue to monitor and treat as needed.. #[id number] [facility]
[2020-02-28] MEDS ORDERED: amLODIPine BESYLATE 5 MG TAB ONE (19:01)
[2020-02-28] MEDS: SIMVASTATIN 10 MG TAB PO SCH (20:36)
[2020-02-28] MEDS: amLODIPine BESYLATE 5 MG TAB PO SCH (20:36)
[2020-02-28] MEDS: PROMETHAZINE W/CODEINE SYR 5 ML UD PO PRN (20:36)
[2020-02-29] MEDS ORDERED: LEVOTHYROXINE SODIUM 0.1 MG TAB ONE (04:26)
[2020-02-29] MEDS ORDERED: PANTOPRAZOLE SODIUM TAB 40 MG PO ONE (04:26)
[2020-02-29] MEDS: PANTOPRAZOLE SODIUM TAB 40 MG PO SCH (06:13)
[2020-02-29] MEDS: LEVOTHYROXINE SODIUM 0.1 MG TAB PO SCH (06:13)
--- NOTE | 2020-02-29 06:17 | RAD ---
EXAM: XR Chest, 1 View CLINICAL HISTORY: covid PNA TECHNIQUE: Frontal view of the chest. COMPARISON: 02/27/2020 FINDINGS: Lungs: There is increased groundglass opacity in the right upper lobe. Bilateral interstitial and mild airspace consolidation otherwise unchanged. Pleural space: No pneumothorax or pleural effusion. Heart: Normal cardiac size and configuration. Mediastinum: No abnormality noted. Bones/joints: No osseous destruction or sclerosis noted. IMPRESSION: Worsening pneumonia in the right upper lobe. Electronically signed by: Reina Aguilera MD 02/29/2020 6:15 AM [facility]
[2020-02-29] MEDS ORDERED: TORSEMIDE TAB 20 MG ONE (07:36)
[2020-02-29] MEDS ORDERED: ASPIRIN (CHEWABLE) 81 MG TAB ONE (07:36)
[2020-02-29] MEDS ORDERED: FERROUS SULFATE 325 MG TAB ONE (07:36)
[2020-02-29] MEDS: guaiFENesin ER TAB 600 MG TAB PO SCH ×2 (08:44→20:30)
[2020-02-29] MEDS: BIFIDOBACTERIUM INFANTIS 4 MG CAP PO SCH (08:44)
[2020-02-29] MEDS: TORSEMIDE TAB 20 MG PO SCH (08:45)
[2020-02-29] MEDS: ASPIRIN (CHEWABLE) 81 MG TAB PO SCH (08:45)
[2020-02-29] MEDS: GABAPENTIN 300 MG CAP PO SCH ×2 (08:45→20:29)
[2020-02-29] MEDS: FLECAINIDE 50 MG TAB PO SCH ×2 (08:46→20:29)
[2020-02-29] MEDS: FERROUS SULFATE 325 MG TAB PO SCH (08:46)
[2020-02-29] MEDS: AZITHROMYCIN IV 500 MG in SODIUM CHLORIDE 0.9% 250ML 250 ML IVPB SCH (09:15)
[2020-02-29] MEDS: ALBUTEROL INHALER 64 PUFF/8GM INH SCH ×4 (09:32→21:24)
[2020-02-29] MEDS: cefTRIAXone SODIUM 1 GM in SODIUM CHL 0.9% 50ML MIN-BAG+ 50 ML IVPB SCH (09:33)
[2020-02-29] MEDS: DEXAMETHASONE INJ 10 MG/ML VIAL IV SCH (09:34)
[2020-02-29] MEDS ORDERED: REMDESIVIR 100 MG in SODIUM CHLORIDE 0.9% 250ML 250 ML IVPB SCH (12:00)
[2020-02-29] MEDS ORDERED: MAGNESIUM HYDROXIDE 30 ML UD PO ONE (12:15)
[2020-02-29] MEDS ORDERED: BISACODYL TAB 5 MG TAB PO ONE (12:15)
[2020-02-29] MEDS: REMDESIVIR 100 MG in SODIUM CHLORIDE 0.9% 250ML 250 ML IVPB SCH (13:05)
[2020-02-29] MEDS: RIVAROXABAN 10 MG TAB PO SCH (17:14)
[2020-02-29] MEDS: LOSARTAN POTASSIUM 100 MG TAB PO SCH (17:15)
--- NOTE | 2020-02-29 18:23 | PN ---
SUPERVISING PHYSICIAN: Jl Moreira MD DATE: 02/29/20 SUBJECTIVE: The patient just notes that she is significantly tired today. She has been able to ambulate, she gets a little short of breath when she does so but she otherwise has not had any complaints. OBJECTIVE: VITAL SIGNS: Temperature 97.5, pulse 56, blood pressure 122/73, respirations 18,oxygen saturation 95% at rest on room air. GENERAL: The patient looks tired but doesn't appear to be in any distress. She is alert. CHEST: Clear to auscultation. Diminished towards the bases. HEART: Regular rate and rhythm. ABDOMEN: Soft, non-tender, positive bowel sounds. EXTREMITIES: Without edema. NEUROLOGIC: Alert and oriented x 3. LABORATORY: White count 10,400, hemoglobin 13.1, hematocrit 37.5, platelet count 380,000. Differential does show a left shift. Coagulation studies show normal D-dimer at less than 131. Fibrinogen a little elevated but going to baseline levels at 472, PTT is normal at 27.2. Chemistries show slightly normal electrolytes today with creatinine 0.66, blood sugar 177, calcium and magnesium both normal. Liver functions all within normal limits. C-reactive protein down to 2, troponin less than 0,02. MICROBIOLOGY: Blood cultures remain negative at 48 hours. RADIOLOGY: Chest x-ray this morning per radiology interpretation shows worsening pneumonia in the right upper lobe. ASSESSMENT: 1. COVID pneumonia in the right upper lobe. 2. Hypertension. 3. Hyperlipidemia. 4. History of paroxysmal atrial fibrillation on Xarelto. 5. Cervical disc disease. 6. Hypothyroidism on supplementation. PLAN: Will continue with more aggressive treatment today. Continue another 24 hours with azithromycin, Rocephin, Decadron and Remdesivir. She is encouraged to ambulate in the room as much as possible. Will continue with medications including Xarelto for anticoagulation. Hopefully, we will be able to transition her to outpatient management in the next 24 hours, probably discharge tomorrow. Until the, we will continue to monitor and treat as needed.. #[id number] [facility]
[2020-02-29] MEDS: SIMVASTATIN 10 MG TAB PO SCH (20:29)
[2020-02-29] MEDS: PROMETHAZINE W/CODEINE SYR 5 ML UD PO PRN (20:30)
[2020-02-29] MEDS: amLODIPine BESYLATE 5 MG TAB PO SCH (20:30)
[2020-03-01] MEDS: PANTOPRAZOLE SODIUM TAB 40 MG PO SCH (06:12)
[2020-03-01] MEDS: LEVOTHYROXINE SODIUM 0.1 MG TAB PO SCH (06:13)
[2020-03-01] MEDS: guaiFENesin ER TAB 600 MG TAB PO SCH (08:13)
[2020-03-01] MEDS: TORSEMIDE TAB 20 MG PO SCH (08:13)
[2020-03-01] MEDS: FLECAINIDE 50 MG TAB PO SCH (08:13)
[2020-03-01] MEDS: ASPIRIN (CHEWABLE) 81 MG TAB PO SCH (08:13)
[2020-03-01] MEDS: BIFIDOBACTERIUM INFANTIS 4 MG CAP PO SCH (08:14)
[2020-03-01] MEDS: DEXAMETHASONE INJ 10 MG/ML VIAL IV SCH (08:14)
[2020-03-01] MEDS: GABAPENTIN 300 MG CAP PO SCH (08:14)
[2020-03-01] MEDS: FERROUS SULFATE 325 MG TAB PO SCH (08:21)
[2020-03-01] MEDS: AZITHROMYCIN IV 500 MG in SODIUM CHLORIDE 0.9% 250ML 250 ML IVPB SCH (08:26)
[2020-03-01] MEDS: ALBUTEROL INHALER 64 PUFF/8GM INH SCH (09:40)
[2020-03-01] MEDS: REMDESIVIR 100 MG in SODIUM CHLORIDE 0.9% 250ML 250 ML IVPB SCH (12:43)
[2020-03-01] MEDS: cefTRIAXone SODIUM 1 GM in SODIUM CHL 0.9% 50ML MIN-BAG+ 50 ML IVPB SCH (13:48)
[2020-03-01 14:05] VITALS: BP 140/76; TEMP 98.4; O2SAT 94
[2020-03-01] MEDS: IV SET AND CAP CHANGE INJ INJ SCH (15:13)
--- NOTE | 2020-03-03 08:53 | DS ---
SUPERVISING PHYSICIAN: Meseret Moreira MD ADMISSION DIAGNOSIS: 1. Bilateral COVID pneumonia, recently diagnosed within the last 10 days. 2. Hypertension. 3. Hyperlipidemia. 4. Paroxysmal atrial fibrillation on Xarelto. 5. Cervical disc disease. 6. Hypothyroidism. DISCHARGE DIAGNOSIS: 1. COVID pneumonia in the right upper lobe. 2. Hypertension. 3. Hyperlipidemia. 4. History of paroxysmal atrial fibrillation on Xarelto. 5. Cervical disc disease. 6. Hypothyroidism on supplementation. REASON FOR HOSPITALIZATION: Ms. Neal is a 79-year-old female patient that had a recent COVID infection diagnosed on 02/16/20, 11 days previously. She was treated through the clinic. She presented today with chills, fatigue, cough and not feeling well. CT of her chest showed mild to moderate bilateral pulmonary infiltrates compatible with COVID-19 pneumonia. Labs showed white count 6,600 with a left shift. Coagulation studies showed normal D-dimer with fibrinogen 614. She is on Xarelto for a history of paroxysmal atrial fibrillation followed by Dr. Franklin. Vital signs in the Emergency Room initially showed saturation of 90% on room air at rest. Blood pressure 149/81, respirations 16, heart rate 55, afebrile. Chemistries showed a mildly low sodium at 133, normal creatinine 0.59. C-reactive protein was elevated at 8.3. Troponin was less than 0.02. Given her recent diagnosis of COVID pneumonitis and now CT showing pneumonia, the patient is going to be admitted for mild hypoxia and developing pneumonia. She is admitted in stable condition. LABORATORY: White count 11,300, hemoglobin 12.9, hematocrit 36.8. Differential shows a left shift. Coagulation studies showed normal D-dimer. She was on Xarelto already. Chemistries showed sodium 132, creatinine 0.53, glucose 126, calcium 8.5, magnesium 2.5. C-reactive protein was initially 8.3 and was down to 2.0 prior to discharge. Troponin less than 0.02. Urinalysis showed trace leukocyte esterase. MICROBIOLOGY: Blood cultures showed no growth after 3 days. RADIOLOGY: CT of the chest on admission per radiologic interpretation showed mild to moderate bilateral pulmonary infiltrates compatible with COVID pneumonia. Final chest x-ray on 02/29/20 showed worsening pneumonia in the right upper lobe. HOSPITAL COURSE: Ms. Neal was admitted for post COVID pneumonia in the right upper lobe. She was treated with antibiotics including azithromycin and Rocephin. She was started on Remdesivir and Decadron. She was already on Xarelto for anticoagulation. She was put on Protonix and Align. She had aggressive pulmonary hygiene. She was doing well with treatments. Vital signs on day of discharge of temperature 98.4, pulse 54, blood pressure 140/76, saturation 95% on room air with respirations 18. It was felt she had improved clinically well enough to be discharged home. PLAN: Ms. Neal was discharged on 03/01/20 instructions to followup with Dr. Moreira on Tuesday. She was to resume her usual diet as tolerated, increase activity as tolerated, continue with bronchial hygiene toiletry. She was to take medications as directed which included prescriptions on discharge for: 1. Align 4 mg daily. 2. Dexamethasone 6 mg daily, #7. 3. Guaifenesin 600 mg twice daily as needed. 4. Cefdinir 300 mg twice daily, #14, no refills. 5. Albuterol inhaler has needed. CONDITION ON DISCHARGE: Stable and improved. DISPOSITION: The patient was discharged home. [facility][id number] [facility]
== END 2020-03-01 15:49 | disposition home or self-care (01) | DRG 177 ==
LOC: ER 10:08 → MS 13:47 → OBSVTOIN 13:47
PROVIDERS: ADMIT Nurse Practitioner Family; ATTEND Nurse Practitioner Family
PROC: XW033E5 Introduction of Remdesivir Anti-infective into Peripheral Vein, Percutaneous Approach, New Technology Group 5 (ICD-10-PCS; principal; 2020-02-27)
DX: U07.1 COVID-19 (principal); J12.89 Other viral pneumonia; E87.1 Hypo-osmolality and hyponatremia; I50.32 Chronic diastolic (congestive) heart failure; I11.0 Hypertensive heart disease with heart failure; E78.5 Hyperlipidemia, unspecified; I48.0 Paroxysmal atrial fibrillation; M50.30 Other cervical disc degeneration, unspecified cervical region; E03.9 Hypothyroidism, unspecified; Z79.01 Long term (current) use of anticoagulants; R09.02 Hypoxemia; Z79.82 Long term (current) use of aspirin; Z88.3 Allergy status to other anti-infective agents; Z88.8 Allergy status to other drugs, medicaments and biological substances; Z79.899 Other long term (current) drug therapy